=== PATIENT | male | born 1975 | race Caucasian/White ===

== ENCOUNTER → 2018-11-29 | Outpatient (CLI) | payer OTHER ==
[~2018-11-29] MED LIST: KEFLEX500 MG PO
--- NOTE | 2018-11-30 10:27 | TST ---
[place] [address] T[facility]MI[facility] STRESS TEST Name: RONALD DESAI Room: [facility]#: [id number] Admission: 11/29/18 Attend Phys: Yanick Perez Discharge: Date of : 77 Date of Service: 11/29/18 1602 Report #: [id number] THIS REPORT FOR: //name// CC: Yanick Perez DO DATE OF SERVICE: 11/29/2018 PROCEDURE: Exercise stress test. INDICATIONS: Exercise stress test was requested in this patient with a family history of coronary artery disease. RESULTS: The patient was exercised on a standard Mario protocol from a pre-test heart rate of 69, blood pressure 139/91. The patient was able to exercise for 10 minutes, achieved a peak heart rate of 170, which was greater than 90% of maximum predicted heart rate for the patient's age. Peak blood pressure was 250/75. In recovery, the patient had a heart rate of 90, blood pressure 153/93. The patient denied chest pain with exercise terminated because of fatigue and elevated blood pressure. The patient's resting ECG showed a normal sinus rhythm with no significant ST or T-wave change noted at baseline. With exercise, there was a rare PVC noted. There was no significant ST or T-wave change noted with exercise. IMPRESSION: 1. Adequate exercise tolerance. 2. No chest pain with exercise. 3. No ischemic ST segment changes noted with exercise. 4. Negative exercise stress test for myocardial ischemia. 5. Clinical response, nonischemic. 6. ECG response, nonischemic. 7. This study is considered to represent a low-risk study for predicting future cardiac events. <ELECTRONICALLY SIGNED> By: Orlando Rausch MD, [facility] 11/30/18 1027 1602 2209 Orlando Rausch MD, FACC /nt
== END ==
LOC: M.CRD 14:50
DX: E29.1 Testicular hypofunction (principal)